=== PATIENT | female | born 2000 | race Two or more races ===

== ENCOUNTER 2022-08-05 06:54 | Emergency (ER) | payer OTHER ==
[~2022-08-05] VITALS: Ht 160 cm; Wt 75.3 kg
[~2022-08-05 06:54] MED LIST: VYVANSE PO
[2022-08-05] MEDS ORDERED: LIPITOR20 MG PO (07:43)
[2022-08-05] MEDS ORDERED: OSEL75CA PO (11:57)
[2022-08-05] MEDS ORDERED: CELEBREX100 MG PO (11:57)
[2022-08-05] MEDS ORDERED: PEPCID AC20 MG PO (11:57)
[2022-08-05] MEDS ORDERED: ONDANSETRON ODT4 MG PO (11:57)
== END 2022-08-05 13:39 ==
LOC: ER 06:54
DX: J10.1 Influenza due to other identified influenza virus with other respiratory manifestations (principal); Z20.822 Contact with and (suspected) exposure to COVID-19